=== PATIENT | female | born 1995 | race Hispanic/Latino ===

== ENCOUNTER 2016-12-12 10:13 | Day surgery (SDC) | payer OTHER ==
[2016-12-12] MEDS ORDERED: NACL 0.9% 500 ML 500 ML IV SCH (11:00)
[2016-12-12] MEDS ORDERED: ATROPINE 0.1% (CARDIAC) ONE (11:30)
[2016-12-12] MEDS ORDERED: NACL 0.9% 500 ML 500 ML ONE (11:47)
[2016-12-12] MEDS: NITROSTAT SL ONE ×2 (11:51→12:02)
[2016-12-12 12:48] VITALS: BP 104/64
--- NOTE | 2016-12-12 12:54 | Short Stay Summary ---
Short Stay Documentation Date of service: 12/12/16 - History H&P: obtained from office - Allergies and Medications Current Medications: Allergies gluten Allergy (Unverified 12/12/16 10:14) Nausea Sulfa (Sulfonamide Antibiotics) Allergy (Unverified 12/12/16 10:13) Hives Active Medications Sodium Chloride (Nacl 0.9% 500 Ml) 500 mls @ 50 mls/hr IV DIRECT LG - Physical exam General appearance: no acute distress Integumentary: no rash HEENT: Atraumatic Lungs: Clear to auscultation Breasts: deferred Heart: Regular rate Gastrointestinal: normal Female Genitourinary: deferred Rectal Exam: deferred Extremities: no ischemia Neurological: Normal gait - Brief post op/procedure progress note Date of procedure: 12/12/16 Pre-op diagnosis: Syncope Post-op diagnosis: same Procedure: TTT Anesthesia: none Findings: See report Surgeon: BÁRBARA GARCIA Estimated blood loss: none Pathology: none Condition: stable - Hospital course Hospital course: Uneventful - Disposition Condition at discharge: Good Disposition: DISCHARGED TO HOME OR SELFCARE Short Stay Discharge Plan Activity: advance as tolerated Weight Bearing Status: Weight Bear as Tolerated Diet: regular
--- NOTE | 2016-12-13 00:44 | Procedure Note ---
TILT TABLE TEST ORDERING PHYSICIAN: Matt Gandara M.D. INDICATION: Syncope. DESCRIPTION OF PROCEDURE: After obtaining written consent, the patient was brought to the tilt table area in the blood bank laboratory technologist. The patient was secured to the tilt table test. Baseline blood pressure was 107/69 with a heart rate of 68 beats per minute. Immediately after tilting, her blood pressure was 105/61 with a heart rate of 87 beats per minute, sinus rhythm. The patient was maintained in an upright position for 10 minutes. At the end of these 10 minutes, her blood pressure was 113/80 with a heart rate of 105 beats per minute. Subsequently, she was given 0.4 mg of sublingual nitroglycerin. After nitroglycerin, her lowest recorded blood pressure was 90/42 and the highest recorded heart rate was 149 beats per minute, sinus tachycardia. The patient did not lose consciousness. There were no episodes of bradycardia or bradyarrhythmias. There were also no episodes of profound hypotension. IMPRESSION: This is a negative tilt table test with no evidence of a vasodepressor or a cardioinhibitory response. RECOMMENDATION: Follow up with referring shelf stocker. JOB# [id number] MATTY/THIAGO
== END 2016-12-12 12:45 | disposition home or self-care (01) ==
LOC: OPU 10:13
PROVIDERS: ATTEND Internal Medicine
DX: R55 Syncope and collapse (principal); I10 Essential (primary) hypertension; Z88.2 Allergy status to sulfonamides; Z83.3 Family history of diabetes mellitus
CPT/HCPCS: 93660; J7040; J0461